=== PATIENT | male | born 1985 | race Caucasian/White ===

== ENCOUNTER 2017-06-28 16:12 | Emergency (ER) | payer MEDICAID, OTHER ==
[2017-06-28] MEDS: HYDROCODONE/APAP (5/325) TAB PO (18:32)
== END 2017-06-28 19:00 | disposition home or self-care (01) ==
LOC: FTE 16:12
DX: B02.9 Zoster without complications (principal)
CPT/HCPCS: 99284; Z7502